=== PATIENT | female | born 1960 | race Caucasian/White ===

== ENCOUNTER 2017-10-24 21:52 | Emergency (ER) | payer MEDICARE, OTHER ==
[~2017-10-24] VITALS: Ht 162.6 cm; Wt 89.8 kg
[~2017-10-24 21:52] MED LIST: ALPR1 PO; CYCL10 PO; DIAZ2 PO; KETO10 PO; LISHYD2012 PO; OXYACE5T; OXYACE5T PO; OXYC5; TRIAOIA; VALS80; VENL75ER PO; VENLAFAXINE HC150 MG PO
[2017-10-24] MEDS ORDERED: SIMV40 PO (23:01)
[2017-10-24] MEDS ORDERED: VENL75ER PO (23:02)
== END 2017-10-24 23:04 | disposition home or self-care (01) ==
LOC: ER 21:52
DX: S93.401A Sprain of unspecified ligament of right ankle, initial encounter (principal); K21.9 Gastro-esophageal reflux disease without esophagitis; Z88.6 Allergy status to analgesic agent; Z79.899 Other long term (current) drug therapy; Z90.710 Acquired absence of both cervix and uterus; Z90.49 Acquired absence of other specified parts of digestive tract; X58.XXXA Exposure to other specified factors, initial encounter
CPT/HCPCS: 73610; 73630; 96372; 99283; J1885

== ENCOUNTER 2018-01-29 21:23 | Emergency (ER) | payer MEDICARE, OTHER ==
[~2018-01-29] VITALS: Ht 162.6 cm; Wt 91.6 kg
[~2018-01-29 21:23] MED LIST changes: +SIMV40 PO
== END 2018-01-30 01:00 | disposition left against medical advice (07) ==
LOC: ER 21:23
DX: Z53.21 Procedure and treatment not carried out due to patient leaving prior to being seen by health care provider (principal)

== ENCOUNTER 2018-02-08 15:08 | Emergency (ER) | payer MEDICARE, OTHER ==
[~2018-02-08] VITALS: Ht 162.6 cm; Wt 90.7 kg
[2018-02-08] MEDS ORDERED: LIDO5TO TOP (16:33)
[2018-02-08] MEDS ORDERED: Voltaren100 GM TOP (16:33)
== END 2018-02-08 16:44 | disposition home or self-care (01) ==
LOC: ER 15:08
DX: M25.562 Pain in left knee (principal); Z88.8 Allergy status to other drugs, medicaments and biological substances; Z79.899 Other long term (current) drug therapy; Z79.891 Long term (current) use of opiate analgesic; Z79.2 Long term (current) use of antibiotics; K21.9 Gastro-esophageal reflux disease without esophagitis
CPT/HCPCS: 96372; 99283; J1885

== ENCOUNTER 2018-02-10 17:46 | Emergency (ER) | payer MEDICARE, OTHER ==
[~2018-02-10] VITALS: Ht 162.6 cm; Wt 90.7 kg
[~2018-02-10 17:46] MED LIST changes: +LIDO5TO TOP; +Voltaren100 GM TOP
[2018-02-10] MEDS ORDERED: Percocet 5-3251 EACH PO (18:47)
[2018-02-10] MEDS ORDERED: Crutch1 EACH MISC (18:56)
== END 2018-02-10 19:14 | disposition home or self-care (01) ==
LOC: ER 17:46
DX: S82.142A Displaced bicondylar fracture of left tibia, initial encounter for closed fracture (principal); K21.9 Gastro-esophageal reflux disease without esophagitis; Z88.6 Allergy status to analgesic agent; Z79.899 Other long term (current) drug therapy; X58.XXXA Exposure to other specified factors, initial encounter
CPT/HCPCS: 29505; 96372; 99283; J1885